=== PATIENT | male | born 1955 | race American Indian/Alaskan Native ===

== ENCOUNTER 2022-06-09 13:09 | Observation (INO) | payer BC ==
--- NOTE | 2022-06-09 13:39 | Emergency Department Report ---
Stated Complaint: SOB/CHEST PAIN - HPI History of Present Illness: 66-year-old male past medical history of hypertension and blood glucose, reports to the ER for complaints of shortness of breath, chest pain, elevated glucose in 400s. 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 Patient reports he feels like he is about to pass out patient feels weak. - ROS Review of Systems: Chest pain, shortness of breath, Elevated blood glucose. Patient reports weakness - Exam Vital Signs: Vital Signs 06/09/22 06/09/22 13:10 13:34 Temperature 98.2 F Pulse Rate 134 H Respiratory 18 Rate Blood Pressure 133/71 [Left] Physical Exam: Patient having slight labored breathing. Patient weak on his legs. Patient elevated heart rate is 138. MSE screening note: Focused history and physical exam performed. Due to findings the following was ordered: MSE complete. Orders to be placed. Patient to be seen by another provider in the back. Triage complete. ED Disposition for MSE Condition: Stable
--- NOTE | 2022-06-09 14:42 | XRay Report ---
CHEST 1 VIEW 06/09/2022 1:36 PM INDICATION / CLINICAL INFORMATION: Chest pain and SOB. COMPARISON: 05/07/2016 FINDINGS: SUPPORT DEVICES: None. HEART / MEDIASTINUM: No significant abnormality. LUNGS / PLEURA: No significant pulmonary or pleural abnormality. No pneumothorax. ADDITIONAL FINDINGS: No significant additional findings. IMPRESSION: 1. No acute findings. Signer Name: Christiano Azevedo MD Signed: 06/09/2022 2:37 PM Workstation Name: [employer]
[2022-06-09 15:01] LABS: Basophils % (Auto) 0.1 % (0.0-1.8); Hematocrit 41.6 % (35.5-45.6); Hemoglobin 13.2 gm/dl (11.8-15.2); Lymphocytes # (Auto) 1.2 K/mm3 (1.2-5.4); Lymphocytes % (Auto) 8.8 % (13.4-35.0); Mean Corpuscular HGB Conc 32 % (32-34); Mean Corpuscular Volume 84 fl (84-94); Monocytes % (Auto) 7.4 % (0.0-7.3); Platelet Count 231 K/mm3 (140-440); Red Blood Count 4.95 M/mm3 (3.65-5.03); Red Cell Distribution Width 17.1 % (13.2-15.2)
[2022-06-09 15:04] LABS: Alanine Aminotransferase 27 units/L (7-56); Albumin 4.2 g/dL (3.9-5); BUN/Creatinine Ratio 16; Blood Urea Nitrogen 26 mg/dL (9-20); Calcium 9.5 mg/dL (8.4-10.2); Hemolysis Index 11
[2022-06-09] MEDS ORDERED: SODIUM CHLORIDE 0.9% 1000 ML 1,000 ML IV ONE ×2 (15:17→15:26)
[2022-06-09] MEDS ORDERED: INSULIN REGULAR, HUMAN 100 UNITS/1 ML IV ONE (15:18)
[2022-06-09] MEDS ORDERED: INSULIN REGULAR, HUMAN 100 UNITS/1 ML SUB-Q ONE (15:20)
--- NOTE | 2022-06-09 16:36 | Emergency Department Report ---
ED Shortness of Breath HPI - General Chief Complaint: Dyspnea/Respdistress Stated Complaint: SOB/CHEST PAIN Time Seen by Provider: 06/09/22 15:32 Source: patient Mode of arrival: Ambulatory Limitations: No Limitations - History of Present Illness Initial Comments: 66-year-old male PMH of hypertension and DM, reports to the ER for complaints of shortness of breath associated with chest pain, elevated glucose in 400s. Patient reports having chest pain for about 4 months but progressively gotten worse recent weeks. He was seen by his primary care and his infrastructure developer and was started on Levaquin couple of days ago. Pt had complete cardiac workup in March about 4 months ago. Walking from one room to the other worsen pain. No other modifying or associated factors. - Related Data Home Medications Medication Instructions Recorded Confirmed Last Taken Atorvastatin (Nf) [Lipitor (Nf)] 10 mg PO QHS 05/07/16 05/07/16 Unknown Dicyclomine [Bentyl] 10 mg PO QID 05/07/16 05/07/16 Unknown Divalproex ER [DepaKOTE ER] 1,000 mg PO QDAY 05/07/16 05/07/16 Unknown Divalproex ER [DepaKOTE ER] 500 mg PO QDAY 05/07/16 05/07/16 Unknown Exenatide Microspheres [Bydureon 2 mg SQ DAILY 05/07/16 05/07/16 Unknown Pen] Metformin HCl [Glucophage] 1,000 mg PO BID 05/07/16 05/07/16 Unknown Previous Rx's Medication Instructions Recorded Last Taken Type Pantoprazole [Protonix TAB] 20 mg PO QDAY #30 tablet.dr 05/08/16 Unknown Rx Prednisone [predniSONE 10 mg 10 mg PO .TAPER #1 tab.ds.pk 05/08/16 Unknown Rx (6-Day Pack, 21 Tabs)] Allergies Allergy/AdvReac Type Severity Reaction Status Date / Time pregabalin [From Lyrica] AdvReac Vomiting Verified 06/09/22 13:39 ED Review of Systems ROS: Stated complaint: SOB/CHEST PAIN Other details as noted in HPI ED Past Medical Hx - Past Medical History Hx Hypertension: Yes Hx Congestive Heart Failure: No Hx Diabetes: Yes Hx Asthma: No Hx COPD: No Additional medical history: Elevated cholesterol, NEUROPATHY, ENLARGED PROSTATE - Surgical History Additional Surgical History: hernia, CARPAL TUNNEL RELEASE - Social History Smoking Status: Unknown if ever smoked - Medications Home Medications: Home Medications Medication Instructions Recorded Confirmed Last Taken Type Atorvastatin (Nf) [Lipitor (Nf)] 10 mg PO QHS 05/07/16 05/07/16 Unknown History Dicyclomine [Bentyl] 10 mg PO QID 05/07/16 05/07/16 Unknown History Divalproex ER [DepaKOTE ER] 1,000 mg PO QDAY 05/07/16 05/07/16 Unknown History Divalproex ER [DepaKOTE ER] 500 mg PO QDAY 05/07/16 05/07/16 Unknown History Exenatide Microspheres [Bydureon 2 mg SQ DAILY 05/07/16 05/07/16 Unknown History Pen] Metformin HCl [Glucophage] 1,000 mg PO BID 05/07/16 05/07/16 Unknown History Pantoprazole [Protonix TAB] 20 mg PO QDAY #30 tablet.dr 05/08/16 Unknown Rx Prednisone [predniSONE 10 mg 10 mg PO .TAPER #1 tab.ds.pk 05/08/16 Unknown Rx (6-Day Pack, 21 Tabs)] ED Physical Exam - General Limitations: No Limitations ED Course Vital Signs 06/09/22 06/09/22 06/09/22 13:10 13:34 14:23 Temperature 98.2 F Pulse Rate 134 H 105 H Respiratory 18 19 Rate Blood Pressure Blood Pressure 133/71 [Left] O2 Sat by Pulse 98 Oximetry 06/09/22 06/09/22 06/09/22 14:31 14:45 15:00 Temperature Pulse Rate 105 H 104 H 101 H Respiratory 14 20 19 Rate Blood Pressure 99/65 102/60 Blood Pressure [Left] O2 Sat by Pulse 99 95 97 Oximetry 06/09/22 06/09/22 06/09/22 15:15 15:30 15:45 Temperature Pulse Rate 107 H 96 H 95 H Respiratory 20 26 H 15 Rate Blood Pressure 116/71 124/70 132/67 Blood Pressure [Left] O2 Sat by Pulse 99 98 100 Oximetry 06/09/22 06/09/22 06/09/22 16:00 16:15 16:31 Temperature Pulse Rate 100 H 95 H 103 H Respiratory 18 18 22 Rate Blood Pressure 124/70 124/70 129/63 Blood Pressure [Left] O2 Sat by Pulse 99 99 100 Oximetry 06/09/22 06/09/22 06/09/22 16:45 17:00 17:23 Temperature Pulse Rate 99 H 96 H Respiratory 19 20 Rate Blood Pressure 125/77 127/61 127/61 Blood Pressure [Left] O2 Sat by Pulse 100 97 100 Oximetry 06/09/22 06/09/22 06/09/22 17:31 17:45 20:01 Temperature Pulse Rate 90 Respiratory 15 Rate Blood Pressure 127/61 127/61 Blood Pressure 149/101 [Left] O2 Sat by Pulse 100 99 99 Oximetry 06/09/22 06/09/22 20:02 22:03 Temperature Pulse Rate 78 Respiratory 17 Rate Blood Pressure Blood Pressure 155/70 [Left] O2 Sat by Pulse 99 97 Oximetry - Consultations Consultation #1: 06/09/22 22:48 Dr Nielsen consulted who accept pt for further evaluation and treatment -- ED Medical Decision Making - Lab Data Result diagrams: 06/09/22 13:50 06/09/22 13:50 - EKG Data -: EKG Interpreted by Ks EKG shows normal: sinus rhythm Rate: tachycardia - EKG Data 06/09/22 21:35 Noted with sinus tachycardia at a rate of 118 bpm with likely left atrial enlargement and this borderline ECG - Radiology Data FINDINGS: HEART: No significant abnormality. CORONARY ARTERY CALCIFICATION: Present -- Moderate. THORACIC AORTA: Mild atherosclerotic calcification without acute abnormality. MEDIASTINUM / DOLLY: No significant abnormality. PLEURA: No pleural effusion. No pneumothorax. LUNGS: There is mild bronchiectasis in the lung bases. There is mild peripheral interstitial disease in the right lower lobe is likely chronic. No pulmonary nodules or masses are seen. No focal tracer is seen. ADDITIONAL FINDINGS: None. UPPER ABDOMEN: No acute abnormality. SKELETAL SYSTEM: No acute abnormality. IMPRESSION: 1. There is mild bronchiectasis in the lung bases. There is mild peripheral interstitial disease in the right lower lobe. - Medical Decision Making Here with shortness of breath with cough --among differential diagnosis could be but not limited to acute pulmonary infection, Covid 19, myocardiac infarction, pulmonary embolism, acute exacerbation of asthma, pneumothorax, pneumonia or Viral or Bacterial Upper/Lower respiratory tract infection or other systemic infection.--To rule out the above will go ahead and order EKG, cardiac enzyme including troponin, BNP, CKMB, chest x-ray, CBC, CMP, UA and or D-dimer. In the meantime we will go ahead and treat with DuoNeb, 125 mg of Solu-Medrol, magnesium sulfate 2 g IV, and will make a case for antibiotics after reviewing the cxr CxR noted with no acute findings but CTA chest noted with FINDINGS: IMPRESSION: 1. There is mild bronchiectasis in the lung bases. There is mild peripheral interstitial disease in the right lower lobe. Will go ahead and order Cefepine 2 gm IV x 1-- and consider admission for this patient as he going to need pulmonary consult for pulmonary toilets and continue DuoNeb and airways clearance therapy and mucoactive agent-- Critical care attestation.: If time is entered above; I have spent that time in minutes in the direct care of this critically ill patient, excluding procedure time. ED Disposition Clinical Impression: Bronchiectasis Qualifiers: Bronchiectasis type: with acute exacerbation Qualified Code(s): J47.1 - Bronchiectasis with (acute) exacerbation Disposition: 09 ADMITTED INPATIENT Is pt being admited?: Yes Does the pt Need Aspirin: No Condition: Stable Referrals: PRIMARY CARE, [Primary Care Provider] - 3-5 Days Time of Disposition: 22:49
--- NOTE | 2022-06-09 17:44 | Cat Scan Report ---
CT CHEST WITH CONTRAST INDICATION / CLINICAL INFORMATION: dyspnea 100ml of [id number] . TECHNIQUE: Axial CT images were obtained through the chest after 100 cc of Omnipaque [address] scans at this location are performed using CT dose reduction for ALARA by means of automated exposure control. COMPARISON: None available. FINDINGS: HEART: No significant abnormality. CORONARY ARTERY CALCIFICATION: Present -- Moderate. THORACIC AORTA: Mild atherosclerotic calcification without acute abnormality. MEDIASTINUM / DOLLY: No significant abnormality. PLEURA: No pleural effusion. No pneumothorax. LUNGS: There is mild bronchiectasis in the lung bases. There is mild peripheral interstitial disease in the right lower lobe is likely chronic. No pulmonary nodules or masses are seen. No focal tracer i s seen. ADDITIONAL FINDINGS: None. UPPER ABDOMEN: No acute abnormality. SKELETAL SYSTEM: No acute abnormality. IMPRESSION: 1. There is mild bronchiectasis in the lung bases. There is mild peripheral interstitial disease in t he right lower lobe. Signer Name: Maciej Caraballo MD Signed: 06/09/2022 5:39 PM Workstation Name: [email or web address]
[2022-06-09] MEDS ORDERED: CEFEPIME/NS 2 GM/100 ML 2 GM/100 ML BAG IV ONE (21:44)
[2022-06-09] MEDS ORDERED: ONDANSETRON 4 MG/2 ML INJ IV PRN (23:53)
[2022-06-09] MEDS ORDERED: ACETAMINOPHEN 325 MG TAB PO PRN (23:53)
[2022-06-09] MEDS ORDERED: MORPHINE 4 MG/1 ML INJ IV PRN (23:53)
[2022-06-09] MEDS ORDERED: MORPHINE 2 MG/1 ML INJ IV PRN (23:53)
[2022-06-09] MEDS ORDERED: DEXTROSE 50% IN WATER (25GM) 50 ML SYRINGE IV PRN (23:57)
--- NOTE | 2022-06-10 00:02 | History and Physical Report ---
History of Present Illness Date of examination: 06/09/22 Date of admission: 06/09/22 Chief complaint: Dyspnea Chest pain History of present illness: 66-year-old male with history of hypertension , hyperlipidemia and DM was brought to the emergency room because of of shortness of breath associated with chest pain, elevated glucose in 400s. Patient reports having chest pain for about 4 months but progressively gotten worse recent weeks. 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 Pt had complete cardiac workup in March about 4 months ago. Walking from one room to the other worsen pain. No other modifying or associated factors. In the emergency room CT scan of the chest shows mild bronchiectasis in the lung bases. There is mild peripheral interstitial disease in the right lower lobe. We will going to admit the patient we will put the patient on neb treatment steroid and consult pulmonary for evaluation Past History Past Medical History: diabetes, hypertension, hyperlipidemia, other (Elevated cholesterol, NEUROPATHY, ENLARGED PROSTATE) Past Surgical History: Other (hernia, CARPAL TUNNEL RELEASE) Social history: no significant social history Family history: hypertension Medications and Allergies Allergies Allergy/AdvReac Type Severity Reaction Status Date / Time pregabalin [From Lyrica] AdvReac Vomiting Verified 06/09/22 13:39 Home Medications Medication Instructions Recorded Confirmed Last Taken Type Atorvastatin (Nf) [Lipitor (Nf)] 10 mg PO QHS 05/07/16 05/07/16 Unknown History Dicyclomine [Bentyl] 10 mg PO QID 05/07/16 05/07/16 Unknown History Divalproex ER [DepaKOTE ER] 1,000 mg PO QDAY 05/07/16 05/07/16 Unknown History Divalproex ER [DepaKOTE ER] 500 mg PO QDAY 05/07/16 05/07/16 Unknown History Exenatide Microspheres [Bydureon 2 mg SQ DAILY 05/07/16 05/07/16 Unknown History Pen] Metformin HCl [Glucophage] 1,000 mg PO BID 05/07/16 05/07/16 Unknown History Pantoprazole [Protonix TAB] 20 mg PO QDAY #30 tablet. 05/08/16 Unknown Rx Prednisone [predniSONE 10 mg 10 mg PO .TAPER #1 tab.ds.pk 05/08/16 Unknown Rx (6-Day Pack, 21 Tabs)] Active Meds: Active Medications Acetaminophen (Acetaminophen 325 Mg Tab) 650 mg PO Q4H PRN PRN Reason: Pain MILD(1-3)/Fever >100.5/HOPKINS Review of Systems All systems: negative Cardiovascular: chest pain, shortness of breath, dyspnea on exertion Respiratory: shortness of breath, dyspnea on exertion Exam - Constitutional Vitals: Temp Pulse Resp BP Pulse Ox 98.2 F 78 17 155/70 97 06/09/22 13:10 06/09/22 22:03 06/09/22 22:03 06/09/22 22:03 06/09/22 22:03 General appearance: Present: no acute distress, well-nourished - EENT Eyes: Present: PERRL ENT: hearing intact, clear oral mucosa - Neck Neck: Present: supple, normal ROM - Respiratory Respiratory effort: normal Respiratory: bilateral: diminished - Cardiovascular Heart Sounds: Present: S1 & S2. Absent: rub, click - Extremities Extremities: pulses symmetrical, No edema Peripheral Pulses: within normal limits - Abdominal General gastrointestinal: Present: soft, non-tender, non-distended, normal bowel sounds Male genitourinary: Present: normal - Integumentary Integumentary: Present: clear, warm, dry - Musculoskeletal Musculoskeletal: gait normal, strength equal bilaterally - Psychiatric Psychiatric: appropriate mood/affect, intact judgment & insight - Neurologic Neurologic: CNII-XII intact, moves all extremities HEART Score - HEART Score Troponin: Troponin T < 0.010 ng/mL (0.00-0.029) 06/09/22 13:50 Results - Labs CBC & Chem 7: 06/09/22 13:50 06/09/22 13:50 Labs: Laboratory Last Values WBC 13.3 K/mm3 (4.5-11.0) H 06/09/22 13:50 RBC 4.95 M/mm3 (3.65-5.03) 06/09/22 13:50 Hgb 13.2 gm/dl (11.8-15.2) 06/09/22 13:50 Hct 41.6 % (35.5-45.6) 06/09/22 13:50 MCV 84 fl (84-94) 06/09/22 13:50 MCH 27 pg (28-32) L 06/09/22 13:50 MCHC 32 % (32-34) 06/09/22 13:50 RDW 17.1 % (13.2-15.2) H 06/09/22 13:50 Plt Count 231 K/mm3 (140-440) 06/09/22 13:50 Lymph % (Auto) 8.8 % (13.4-35.0) L 06/09/22 13:50 [place] % (Auto) 7.4 % (0.0-7.3) H 06/09/22 13:50 Eos % (Auto) 0.0 % (0.0-4.3) 06/09/22 13:50 Baso % (Auto) 0.1 % (0.0-1.8) 06/09/22 13:50 Lymph # (Auto) 1.2 K/mm3 (1.2-5.4) 06/09/22 13:50 [place] # (Auto) 1.0 K/mm3 (0.0-0.8) H 06/09/22 13:50 Eos # (Auto) 0.0 K/mm3 (0.0-0.4) 06/09/22 13:50 Baso # (Auto) 0.0 K/mm3 (0.0-0.1) 06/09/22 13:50 Seg Neutrophils % 83.7 % (40.0-70.0) H 06/09/22 13:50 Seg Neutrophils # 11.1 K/mm3 (1.8-7.7) H 06/09/22 13:50 Sodium 137 mmol/L (137-145) 06/09/22 13:50 Potassium 4.1 mmol/L (3.6-5.0) 06/09/22 13:50 Chloride 98.1 mmol/L (98-107) 06/09/22 13:50 Carbon Dioxide 18 mmol/L (22-30) L 06/09/22 13:50 Anion Gap 25 mmol/L 06/09/22 13:50 BUN 26 mg/dL (9-20) H 06/09/22 13:50 Creatinine 1.6 mg/dL (0.8-1.3) H 06/09/22 13:50 Estimated GFR 52 ml/min 06/09/22 13:50 BUN/Creatinine Ratio 16 % 06/09/22 13:50 Glucose 459 mg/dL (75-100) H 06/09/22 13:50 POC Glucose 181 mg/dL (70-105) H 06/09/22 17:02 Calcium 9.5 mg/dL (8.4-10.2) 06/09/22 13:50 Total Bilirubin 0.20 mg/dL (0.1-1.2) 06/09/22 13:50 AST 13 units/L (5-40) 06/09/22 13:50 ALT 27 units/L (7-56) 06/09/22 13:50 Alkaline Phosphatase 130 units/L (35-129) H 06/09/22 13:50 Troponin T < 0.010 ng/mL (0.00-0.029) 06/09/22 13:50 NT-Pro-B Natriuret Pep 684.0 pg/mL (0-900) 06/09/22 13:50 Total Protein 7.7 g/dL (6.3-8.2) 06/09/22 13:50 Albumin 4.2 g/dL (3.9-5) 06/09/22 13:50 Albumin/Globulin Ratio 1.2 % 06/09/22 13:50 - Imaging and Cardiology CT scan - chest: report reviewed Assessment and Plan VTE prophylaxis?: Chemical Plan of care discussed with patient/family: Yes - Patient Problems (1) Bronchiectasis Current Visit: Yes Status: Acute Qualifiers: Bronchiectasis type: with acute exacerbation Qualified Code(s): J47.1 - Bronchiectasis with (acute) exacerbation Plan to address problem: Admit the patient to the medical telemetry. Oxygen per nasal cannula 3 L/min. DuoNeb via nebulizer every 4 hours. Albuterol via nebulizer every 4 hours as needed. Prednisone 10 mg p.o. daily. We will put the patient on Rocephin 2 g IV daily and Zithromax. pulmonary consult for evaluation (2) Diabetes Current Visit: No Status: Acute Plan to address problem: 1800 kcal ADA diet. Humalog sliding scale moderate dose coverage. Accu-Chek before meals and at bedtime. Diabetic education (3) GERD (gastroesophageal reflux disease) Current Visit: No Status: Acute Plan to address problem: Pepcid 20 mg p.o. twice daily for GI prophylaxis. We continue the home medication (4) HTN (hypertension) Current Visit: No Status: Acute Plan to address problem: Hydralazine 10 mg IV every 6 hours as needed. We continue the home medication (5) Left sided chest pain Current Visit: No Status: Acute Plan to address problem: Troponin is 0.010. 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 We will monitor the patient closely (6) DVT prophylaxis Current Visit: No Status: Acute Plan to address problem: Heparin 5000 units subcu every 12 hours for DVT prophylaxis. Pepcid 20 mg p.o. twice daily for GI prophylaxis. Patient is a full code
[2022-06-10] MEDS ORDERED: cefTRIAXone/NS 2 GM/100 ML 2 GM/100 ML BAG IV SCH (06:00)
[2022-06-10 06:19] LABS: Basophils % (Auto) 0.6 % (0.0-1.8); Eosinophils % (Auto) 0.4 % (0.0-4.3); Hematocrit 39.8 % (35.5-45.6); Hemoglobin 12.4 gm/dl (11.8-15.2); Lymphocytes # (Auto) 2.3 K/mm3 (1.2-5.4); Lymphocytes % (Auto) 27.2 % (13.4-35.0); Mean Corpuscular HGB Conc 31 % (32-34); Mean Corpuscular Volume 85 fl (84-94); Monocytes # (Auto) 0.6 K/mm3 (0.0-0.8); Monocytes % (Auto) 7.4 % (0.0-7.3); Platelet Count 199 K/mm3 (140-440); Red Blood Count 4.69 M/mm3 (3.65-5.03); Red Cell Distribution Width 17.3 % (13.2-15.2)
[2022-06-10 06:33] LABS: BUN/Creatinine Ratio 18; Blood Urea Nitrogen 16 mg/dL (9-20); Calcium 8.9 mg/dL (8.4-10.2); Hemolysis Index 2
[2022-06-10] MEDS ORDERED: metFORMIN 500 MG TAB PO SCH (08:00)
[2022-06-10] MEDS: INSULIN LISPRO 100 UNIT/ML SUB-Q SCH ×2 (08:24→13:07)
--- NOTE | 2022-06-10 09:46 | Consultation ---
History of Present Illness Consult date: 06/10/22 Requesting physician: JOAQUINA HAZEL Reason for consult: abnormal CXR/CT History of present illness: 66 y/o male, not the best historian, admitted with chest pain and abnormal CT of chest. Per patient, chest pain present for 4 months now but has progressively worsened. Worse with exertion. Per the chart had full cardiac work up in March but he cannot remember all the details of this. He is a lifelong nonsmoker. No changes in medications or than the steroids prescribed by his PCP. No new pets, detergents or fragances in the home and no trauma. Patient does suffer from GERD but is not on any maintenance therapy. He takes occasional tums and drinks a lot of coffee and pepsi. He denies chocolate use or peppermints. HE was admitted in 2015 for very similar complaints but he does not remember that admission or its details. He was discharged 1 day later. He has never seen a lung physician before. Remainder of the review is negative. Past History Past Medical History: diabetes, GERD, hypertension, hyperlipidemia, other (Elevated cholesterol, NEUROPATHY, ENLARGED PROSTATE) Past Surgical History: Other (hernia, CARPAL TUNNEL RELEASE) Social history: no significant social history Family history: hypertension Medications and Allergies Allergies Allergy/AdvReac Type Severity Reaction Status Date / Time pregabalin [From Lyrica] AdvReac Vomiting Verified 06/09/22 13:39 Home Medications Medication Instructions Recorded Confirmed Last Taken Type Atorvastatin (Nf) [Lipitor (Nf)] 10 mg PO QHS 05/07/16 06/10/22 06/08/22 History Dicyclomine [Bentyl] 10 mg PO QID 05/07/16 06/10/22 Unknown History Divalproex ER [DepaKOTE ER] 1,000 mg PO QDAY 05/07/16 06/10/22 Unknown History Divalproex ER [DepaKOTE ER] 500 mg PO QDAY 05/07/16 06/10/22 06/08/22 History Exenatide Microspheres [Bydureon 2 mg SQ DAILY 05/07/16 06/10/22 Unknown History Pen] Metformin HCl [Glucophage] 1,000 mg PO BID 05/07/16 06/10/22 Unknown History Pantoprazole [Protonix TAB] 20 mg PO QDAY #30 tablet. 05/08/16 06/10/22 Unknown Rx Prednisone [predniSONE 10 mg 10 mg PO .TAPER #1 tab.ds.pk 05/08/16 06/10/22 U nknown Rx (6-Day Pack, 21 Tabs)] Empagliflozin [Jardiance] 1 tab PO DAILY 06/10/22 06/10/22 Unknown History Glimepiride [Amaryl] 2 mg PO BID 06/10/22 06/10/22 06/08/22 History Losartan [Cozaar] 100 mg PO QDAY 06/10/22 06/10/22 Unknown History Metoprolol [Lopressor] 25 mg PO BID 06/10/22 06/10/22 Unknown History Tamsulosin [Flomax] 0.4 mg PO DAILY 06/10/22 06/10/22 Unknown History Active Meds: Active Medications Acetaminophen (Acetaminophen 325 Mg Tab) 650 mg PO Q4H PRN PRN Reason: Pain MILD(1-3)/Fever >100.5/HOPKINS Atorvastatin Calcium (Atorvastatin 10 Mg Tab) 10 mg PO QHS SHANICE Azithromycin (Azithromycin 250 Mg Tab) 500 mg PO QDAY SHANICE; Protocol Last Admin: 06/10/22 09:44 Dose: 500 mg Dextrose (Dextrose 50% In Water (25gm) 50 Ml Syringe) 50 ml IV Q30MIN PRN; Protocol PRN Reason: Hypoglycemia Divalproex Sodium (Divalproex Er 500 Mg Tab) 500 mg PO QDAY SHANICE Famotidine (Famotidine 20 Mg Tab) 20 mg PO DAILY SHANICE Last Admin: 06/10/22 09:44 Dose: 20 mg Heparin Sodium (Porcine) (Heparin 5,000 Unit/1 Ml Vial) 5,000 unit SUB-Q Q12HR SHANICE Last Admin: 06/10/22 09:45 Dose: 5,000 unit Ceftriaxone Sodium (Rocephin/Ns 2 Gm/100 Ml) 2 gm in 100 mls @ 200 mls/hr IV Q24H SHANICE; Protocol Last Admin: 06/10/22 06:29 Dose: 200 mls/hr Insulin Human Lispro (Insulin Lispro 100 Unit/Ml) 0 unit SUB-Q ACHS SHANICE; Protocol Last Admin: 06/10/22 08:24 Dose: Not Given Metformin HCl (Metformin 500 Mg Tab) 1,000 mg PO BIDDIAB SHANICE Morphine Sulfate (Morphine 2 Mg/1 Ml Inj) 2 mg IV Q4H PRN PRN Reason: Pain, Moderate (4-6) Morphine Sulfate (Morphine 4 Mg/1 Ml Inj) 4 mg IV Q4H PRN PRN Reason: Pain , Severe (7-10) Ondansetron HCl (Ondansetron 4 Mg/2 Ml Inj) 4 mg IV Q8H PRN PRN Reason: Nausea And Vomiting Prednisone (Prednisone 10 Mg Tab) 10 mg PO QDAY [facility] Last Admin: 06/10/22 09:44 Dose: 10 mg Sodium Chloride (Sodium Chloride 0.9% 10 Ml Flush Syringe) 10 ml IV BID [facility] Last Admin: 06/10/22 09:45 Dose: 10 ml Sodium Chloride (Sodium Chloride 0.9% 10 Ml Flush Syringe) 10 ml IV PRN PRN PRN Reason: LINE FLUSH Review of Systems All systems: negative Physical Examination Vital signs: Vital Signs Temp 98.2 F 06/09/22 13:10 General appearance: no acute distress, alert Eyes: non-icteric ENT: oropharynx moist Neck: supple Effort: normal Ascultation: Bilateral: clear Percussion: Bilateral: not dull Tactile fremitus: Bilateral: normal Results - Laboratory Findings CBC and BMP: 06/10/22 05:41 06/10/22 05:41 Abnormal lab findings: Abnormal Labs 06/09/22 06/09/22 06/09/22 13:50 13:50 17:02 WBC 13.3 H MCH 27 L MCHC RDW 17.1 H Lymph % (Auto) 8.8 L [place] % (Auto) 7.4 H [place] # (Auto) 1.0 H Seg Neutrophils % 83.7 H Seg Neutrophils # 11.1 H Chloride Carbon Dioxide 18 L BUN 26 H Creatinine 1.6 H Glucose 459 H POC Glucose 181 H Alkaline Phosphatase 130 H 06/10/22 06/10/22 06/10/22 05:41 05:41 08:17 WBC MCH 27 L MCHC 31 L RDW 17.3 H Lymph % (Auto) [place] % (Auto) 7.4 H [place] # (Auto) Seg Neutrophils % Seg Neutrophils # Chloride 108.7 H Carbon Dioxide BUN Creatinine Glucose 155 H POC Glucose 120 H Alkaline Phosphatase - Diagnostic Findings Chest x-ray: image reviewed CT scan - chest: image reviewed (compared to CT from 2016, ( per rads who read this film there wasn't a comparison available so assuming they could not access it) but bronchiectasis was present in prior imaging, has not progressed, small areas of change seen in right lower lobe could be from chronic aspiration from untreated GERD) Assessment and Plan 66 y/o male with abnormal CT of chest admitted with chest pain. similar admission back in 2016. CTA done back then was negative for PE. There was some bronchiectasis noted then but not dictated or noted by the interpreting radiologist. What I can say is that there has been no disease progression since then. There are some changes in the right lower lobe which I agree with the empiric abx therapy given by IMS but this could also be secondary to chronic aspiration from untreated GERD. Suggest the followin. Consider V/Q scan but if low Pretest probability for pE, check D-Dimer and if negative then no further testing needed. Per the normal range here, D-Dimer is normal so will not perform V/Q scan 2. Can follow up in the office in 10-14 days for full PFT 3. Finish steroid taper 4. Suggest aggressive GERD therapy with at least daily H2 caleb. I have asked patient to cut way down to caffeine use with coffee and pepsi's to see if this makes a difference 5. Ok with switching to Levaquin daily and treating for a total of 7 days. Call if questions.
[2022-06-10] MEDS ORDERED: DIVALPROEX ER 500 MG TAB PO SCH (10:00)
[2022-06-10] MEDS ORDERED: FAMOTIDINE 20 MG TAB PO SCH (10:00)
[2022-06-10] MEDS ORDERED: HEPARIN 5,000 UNIT/1 ML VIAL SUB-Q SCH (10:00)
[2022-06-10] MEDS ORDERED: AZITHROMYCIN 250 MG TAB PO SCH (10:00)
[2022-06-10] MEDS ORDERED: predniSONE 10 MG TAB PO SCH (10:00)
[2022-06-10] MEDS ORDERED: GLIMEPIRIDE 2 MG TAB PO SCH (12:00)
--- NOTE | 2022-06-10 12:13 | Discharge Summary ---
Providers - Providers Date of Admission: 06/09/22 23:54 Date of discharge: 06/10/22 Attending physician: ADRIANE SMITH MD 06/09/22 23:53 Consult to Physician [CONS] Routine Comment: Consulting Provider: MIKE HERNANDEZ Physician Instructions: Reason For Exam: Bronchiectasis 06/09/22 23:57 Consult to Dietitian/Nutrition [CONS] Routine Physician Instructions: Reason For Exam: Reason for Consult: Diet education Primary care physician: BAND DIRECTOR Hospitalization Reason for admission: Mild bronchiectasis Condition: Stable Pertinent studies: Reviewed. Procedures: None. Hospital course: Patient is a 66-year-old male past medical history of hypertension, sxe-ogudvrf-ghelwixhe type 2 diabetes mellitus, GERD, and hyperlipidemia presented to the ED with complaints of shortness of breath with associated chest pain. Patient describes having exertional chest pain for the last 4 months but had progressively gotten worse within the most recent couple of weeks. Patient describes being evaluated by his primary care provider and being referred to a skirt panel assembler who performed cardiac work-up (TTE and stress test) that were found to be unremarkable. Patient denies any smoking history or known exposures to fungus. Patient had previously presented in 2016 for the same complaints. On presentation to the ED, the patient was found to be tachycardic to 134 but otherwise hemodynamically stable. Chest x-ray was found to be unremarkable CT chest with contrast revealed mild bronchiectasis bilateral lung bases, and mild peripheral interstitial disease in the right lower lobe. Pulmonology was consulted for further management who recommend the patient presenting in the clinic in 10-14 days to undergo full pulmonary function tests. Patient will finish steroid taper prior to presenting to the clinic. The patient will also complete Levaquin 500 mg daily for total of 7 days. Patient is medically clear for discharge. Disposition: 01 HOME / SELF CARE / HOMELESS Final Discharge Diagnosis (Prints w/discharge instructions): Mild bronchiectasis, gzq-kehraho-ybigeliam type 2 diabetes mellitus, GERD, hypertension, acute chest painruled out Time spent for discharge: 45 min Core Measure Documentation - Palliative Care Palliative Care/ Comfort Measures: Not Applicable - Core Measures Any of the following diagnoses?: none Exam - Constitutional Vitals: Temp Pulse Resp BP Pulse Ox 97.5 F L 73 14 116/50 98 06/10/22 07:52 06/10/22 07:52 06/10/22 06:23 06/10/22 07:52 06/10/22 08:33 General appearance: Present: no acute distress, well-nourished - EENT Eyes: Present: PERRL, EOM intact ENT: hearing intact, clear oral mucosa, dentition normal - Neck Neck: Present: supple, normal ROM - Respiratory Respiratory effort: normal Respiratory: bilateral: CTA - Cardiovascular Rhythm: regular Heart Sounds: Present: S1 & S2 - Extremities Extremities: no ischemia, pulses intact, pulses symmetrical, No edema, normal temperature, normal color Peripheral Pulses: within normal limits - Abdominal General gastrointestinal: Present: soft, non-tender, non-distended, normal bowel sounds Male genitourinary: Present: deferred - Rectal Rectal Exam: deferred - Integumentary Integumentary: Present: clear, warm, dry - Musculoskeletal Musculoskeletal: strength equal bilaterally - Psychiatric Psychiatric: appropriate mood/affect, intact judgment & insight, memory intact, cooperative - Neurologic Neurologic: CNII-XII intact, moves all extremities - Allied Health Allied health notes reviewed: nursing Plan Activity: advance as tolerated Diet: low salt, diabetic Additional Instructions: Patient is a 66-year-old male past medical history of hypertension, tch-tvxnnuo-gejawxgxb type 2 diabetes mellitus, GERD, and hyperlipidemia presented to the ED with complaints of shortness of breath with associated chest pain. Patient describes having exertional chest pain for the last 4 months but had progressively gotten worse within the most recent couple of weeks. Patient describes being evaluated by his primary care provider and being referred to a skirt panel assembler who performed cardiac work-up (TTE and stress test) that were found to be unremarkable. Patient denies any smoking history or known exposures to fungus. Patient had previously presented in 2016 for the same complaints. On presentation to the ED, the patient was found to be tachycardic to 134 but otherwise hemodynamically stable. Chest x-ray was found to be unremarkable CT chest with contrast revealed mild bronchiectasis bilateral lung bases, and mild peripheral interstitial disease in the right lower lobe. Pulmonology was consulted for further management who recommend the patient pres enting in the clinic in 10-14 days to undergo full pulmonary function tests. Patient will finish steroid taper prior to presenting to the clinic. The patient will also complete Levaquin 500 mg daily for total of 7 days. Patient is medically clear for discharge. Care Plan Goals: Patient is medically clear for discharge. Assessment: Patient is a 66-year-old male past medical history of hypertension, kgs-ioszfby-ualwpjvfx type 2 diabetes mellitus, GERD, and hyperlipidemia presented to the ED with complaints of shortness of breath with associated chest pain. Patient describes having exertional chest pain for the last 4 months but had progressively gotten worse within the most recent couple of weeks. Patient describes being evaluated by his primary care provider and being referred to a skirt panel assembler who performed cardiac work-up (TTE and stress test) that were found to be unremarkable. Patient denies any smoking history or known exposures to fungus. Patient had previously presented in 2016 for the same complaints. On presentation to the ED, the patient was found to be tachycardic to 134 but otherwise hemodynamically stable. Chest x-ray was found to be unremarkable CT chest with contrast revealed mild bronchiectasis bilateral lung bases, and mild peripheral interstitial disease in the right lower lobe. Pulmonology was consulted for further management who recommend the patient presenting in the clinic in 10-14 days to undergo full pulmonary function tests. Patient will finish steroid taper prior to presenting to the clinic. The patient will also complete Levaquin 500 mg daily for total of 7 days. Patient is medically clear for discharge. Follow up with: PRIMARY MD JEREMY [Primary Care Provider] - 3-5 Days ROMEO RAE MD [Staff Physician] - 14 Days Forms: Work/School Release Form Prescriptions: Famotidine [Pepcid] 20 mg PO DAILY #30 tablet
[2022-06-10 12:45] VITALS: BP 126/64
--- NOTE | 2022-06-11 10:51 | Electrocardiograph Report ---
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 No previous ECG available for comparison Electronically Signed On 06-11-2022 10:51:32 EDT by Lamonte Jaramillo
== END 2022-06-10 14:30 | disposition home or self-care (01) ==
LOC: ED 13:09 → 4A 23:54 → INTOOBSV 23:54
PROVIDERS: ADMIT Hospitalist; ATTEND Student in an Organized Health Care Education/Training Program
DX: J47.1 Bronchiectasis with (acute) exacerbation (principal); I10 Essential (primary) hypertension; E11.9 Type 2 diabetes mellitus without complications; K21.9 Gastro-esophageal reflux disease without esophagitis; R07.89 Other chest pain; E78.5 Hyperlipidemia, unspecified; E78.00 Pure hypercholesterolemia, unspecified; N40.0 Benign prostatic hyperplasia without lower urinary tract symptoms; Z79.899 Other long term (current) drug therapy; Z98.890 Other specified postprocedural states; Z79.84 Long term (current) use of oral hypoglycemic drugs
CPT/HCPCS: 36415; 71045; 71260; 80048; 80053; 82962; 83880; 84484; 85025; 85379; 93005; 96361; 96365; 96367; 96372; 96375; 99285; G0378; J0692; J0696; J1644; J7030; J7512; Q9967; J1815